=== PATIENT | male | born 1945 | race Caucasian/White ===

== ENCOUNTER 2016-07-17 12:56 | Outpatient (CLI) ==
[2015-01-05 10:21] VITALS: BMI 30.7
[2016-07-17 14:11] LABS: BILIRUBIN,URINE Negative (NEGATIVE); KETONES,URINE Negative (NEGATIVE); LEUKOCYTE ESTERASE ,URINE Negative (NEGATIVE); NITRITE,URINE Negative (NEGATIVE); PROTEIN,URINE Negative (NEGATIVE); URINE, BLOOD 1+ (NEGATIVE)
[2016-07-17 14:23] LABS: ADD URINE MICROSCOPIC YES
== END 2016-07-17 12:57 | disposition home or self-care (01) ==
LOC: LAB 12:56
PROVIDERS: ATTEND General Practice
DX: R31.9 Hematuria, unspecified (principal)
CPT/HCPCS: 81001

== ENCOUNTER 2016-07-24 09:10 | Outpatient (CLI) | payer OTHER ==
[2015-01-05 10:21] VITALS: BMI 30.7
--- NOTE | 2016-07-24 10:09 | US ---
EXAM: Renal ultrasound HISTORY: Hematuria COMPARISON: CTA abdomen pelvis 09/09/2014 TECHNIQUE: Sonographic evaluation of the kidneys was performed with limited Doppler evaluation. FINDINGS: The right kidney measures 11.3 x 5.4 x 4.3 cm with renal cortical thickness of 1.9 cm. T here is normal echogenicity and color Doppler flow. No stone or hydronephrosis is identified. Ther e is a hyperechoic probable stone in the right inferior pole measuring 0.6 cm. The left kidney measures 10.4 x 4.8 x 4.2 cm with renal cortical thickness of 1.8 cm. There is norm al echogenicity and color Doppler flow. No stone or hydronephrosis is identified. Numerous anechoic cysts are present with the largest measuring 1.0 x 1.3 x 1.7 cm. There is a hyperechoic stone in th e mid left kidney consistent with nonobstructing stone. Limited evaluation of the urinary bladder is unremarkable and is nondistended. IMPRESSION: 1. No obstructive uropathy with bilateral nonobstructing stones. 2. Anechoic left renal cysts are present.
== END 2016-07-24 09:11 | disposition home or self-care (01) ==
LOC: RAD 09:10
PROVIDERS: ATTEND General Practice
DX: R31.9 Hematuria, unspecified (principal)
CPT/HCPCS: 76770

== ENCOUNTER 2016-10-12 15:11 | Outpatient (CLI) | payer OTHER ==
[2015-01-05 10:21] VITALS: BMI 30.7
--- NOTE | 2016-10-12 15:35 | DI ---
EXAM: Four views of the right knee. History: Right knee pain and trauma. Findings: No acute fracture or dislocation. Moderate to severe narrowing of the medial compartment . Moderate narrowing of the patellofemoral compartment. Mild narrowing of the lateral compartment. Small osteophytes. Amorphous calcification seen on the lateral view projecting over the superior joint space. Impression: 1. No acute osseous abnormality. 2. Osteoarthritis. 3. 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
== END 2016-10-12 15:12 | disposition home or self-care (01) ==
LOC: RAD 15:11
PROVIDERS: ATTEND General Practice
DX: M25.561 Pain in right knee (principal)

== ENCOUNTER 2016-11-23 09:34 | Outpatient (CLI) ==
[2015-01-05 10:21] VITALS: BMI 30.7
[2016-11-23 14:15] LABS: BASOPHILS # (AUTO) 0.1 K/uL (0-0.2); BASOPHILS % (AUTO) 1.1 % (0.0-3.0); EOSINOPHILS # (AUTO) 0.2 K/ul (0.0-0.7); EOSINOPHILS % (AUTO) 4.3 % (0.0-7.0); HEMATOCRIT 45.3 % (42.0-52.0); HEMOGLOBIN 15.2 g/dl (14.0-18.0); IMMATURE GRANULOCYTE % (AUTO) 0.2 % (0.0-5.0); LYMPHOCYTES # (AUTO) 1.6 K/uL (0.60-3.4); LYMPHOCYTES % (AUTO) 29.7 (10.0-50.0); MEAN CORPUSCULAR HEMOGLOBIN 30.8 pg (27.0-31.0); MEAN CORPUSCULAR HGB CONC 33.6 (31.8-35.4); MEAN CORPUSCULAR VOLUME 91.7 fl (80.0-94.0); MONOCYTES # (AUTO) 0.4 K/uL (0.4-2.0); MONOCYTES % (AUTO) 7.9 (0-10); NEUTROPHILS % (AUTO) 56.8; PLATELET COUNT 148 10^3/uL (140-440); RED BLOOD COUNT 4.94 10^6/ul (4.70-6.10); WHITE BLOOD COUNT 5.32 K/ul (4.2-10.2)
[2016-11-23 14:30] LABS: ALBUMIN 3.8 g/dL (3.4-5.0); ALBUMIN/GLOBULIN RATIO 0.97; ANION GAP 15.6; BILIRUBIN,TOTAL 0.52 mg/dL (0.00-1.20); BUN/CREATININE RATIO 17.39; CALCIUM 9.3 mg/dL (8.2-10.2); CHOL/HDL RATIO 4.8 (4.5-6.4); CREATININE 1.38 mg/dL (0.60-1.10); POTASSIUM 4.6 mmol/L (3.5-5.1); TOTAL PROTEIN 7.7 g/dL (5.8-8.1)
[2016-11-23 14:31] LABS: BILIRUBIN,URINE Negative (NEGATIVE); KETONES,URINE Negative (NEGATIVE); LEUKOCYTE ESTERASE ,URINE Negative (NEGATIVE); NITRITE,URINE Negative (NEGATIVE); PROTEIN,URINE Negative (NEGATIVE); URINE, BLOOD 1+ (NEGATIVE)
[2016-11-23 14:36] LABS: ADD URINE MICROSCOPIC YES
== END 2016-11-23 09:35 ==
LOC: LAB 09:34
PROVIDERS: ATTEND General Practice
DX: I10 Essential (primary) hypertension (principal); Z79.899 Other long term (current) drug therapy
CPT/HCPCS: 36415; 80053; 80061; 81001; 85025

== ENCOUNTER 2017-01-29 12:04 | Emergency (ER) | payer OTHER ==
[2017-01-29 12:14] VITALS: BP 148/89; TEMP 97.5; BMI 31.1
--- NOTE | 2017-01-29 13:00 | DI ---
Exam: Two x-rays of the chest. Comparison: 09/09/2014. Reason for exam: Epigastric pain. FINDINGS: No pneumothorax, pleural effusion, or focal consolidation. The cardiac silhouette is not enlarged. The imaged osseous structures appear grossly unremarkable without acute fracture. Impression: No acute cardiopulmonary process.
--- NOTE | 2017-01-29 13:02 | CT ---
EXAM: CT of the abdomen pelvis without contrast History: Epigastric abdominal pain. Comparison: CT abdomen pelvis 09/09/2014 Technique: Multiplanar CT images through the abdomen pelvis were obtained without the administratio n of IV contrast Findings: Lung bases are free of consolidation. No acute osseous abnormalities. Severe degenerativ e disc disease at L5-S1. Cholelithiasis. No peripancreatic inflammation. Calcified granulomas within the liver and spleen. Adrenal glands are unremarkable. No renal stones and no hydronephrosis. No ureteral calculi. Ath erosclerotic vascular calcifications. No bowel obstruction. No free air. No ascites. The appendi x is normal. No bladder wall thickening. No perirectal inflammation. Prostatic calcifications. Impression: 1. Cholelithiasis. 2. Severe degenerate disc disease at L5-S1.
[2017-01-29 13:05] LABS: BASOPHILS # (AUTO) 0.1 K/uL (0-0.2); BASOPHILS % (AUTO) 0.7 % (0.0-3.0); EOSINOPHILS # (AUTO) 0.2 K/ul (0.0-0.7); EOSINOPHILS % (AUTO) 2.2 % (0.0-7.0); HEMATOCRIT 43.1 % (42.0-52.0); HEMOGLOBIN 15.2 g/dl (14.0-18.0); IMMATURE GRANULOCYTE % (AUTO) 0.1 % (0.0-5.0); LYMPHOCYTES # (AUTO) 1.8 K/uL (0.60-3.4); LYMPHOCYTES % (AUTO) 27.1 (10.0-50.0); MEAN CORPUSCULAR HEMOGLOBIN 31.5 pg (27.0-31.0); MEAN CORPUSCULAR HGB CONC 35.3 (31.8-35.4); MEAN CORPUSCULAR VOLUME 89.2 fl (80.0-94.0); MONOCYTES # (AUTO) 0.6 K/uL (0.4-2.0); MONOCYTES % (AUTO) 8.1 (0-10); NEUTROPHILS # (AUTO) 4.2 K/ul (2.0-6.9); NEUTROPHILS % (AUTO) 61.8; PLATELET COUNT 116 10^3/uL (140-440); RED BLOOD COUNT 4.83 10^6/ul (4.70-6.10); WHITE BLOOD COUNT 6.75 K/ul (4.2-10.2)
[2017-01-29 13:33] LABS: ALBUMIN 3.7 g/dL (3.4-5.0); ALBUMIN/GLOBULIN RATIO 0.97; ANION GAP 13.2; BILIRUBIN,TOTAL 0.63 mg/dL (0.00-1.20); BUN/CREATININE RATIO 11.65; CALCIUM 9.7 mg/dL (8.2-10.2); CREATININE 1.63 mg/dL (0.60-1.10); POTASSIUM 4.2 mmol/L (3.5-5.1); TOTAL PROTEIN 7.5 g/dL (5.8-8.1); TROPONIN I 0.01 ng/ml (0.0000-0.4000)
--- NOTE | 2017-01-29 13:44 | ED.PDOC ---
General ED Provider: Dr. KURT PERSAUD Chief Complaint: Chest Pain Stated Complaint: epigastric pain Time Seen by Physician: 12:20 ( has epigastric burning pain with regurgitation of food ) Mode of Arrival: Walk-In Information Source: Patient Exam Limitations: No limitations [facility] T[facility] Documentation Reviewed and Agree: Yes (did not have full regurgitation but burning extended to throat /mouth) GI Complaint Exam - Abdominal Pain Complaint/Exam Onset: Gradual Duration: epigastric pain x 1 day Symptoms Are: Resolved Timing: Intermittent Initial Severity: Moderate Current Severity: None Location of Pain: Epigastric Character: Reports: Burning Aggravating: Reports: Food Alleviating: Reports: None Associated Signs and Symptoms: Reports: Cough. Denies: Diaphoresis, Fever, Chest pain, Dizziness, Back pain, Constipation, Blood in stool, Dysuria, Urinary frequency, Decreased urine output, Decreased appetite, Discharge, Nausea , Vomiting, Diarrhea, Decreased activity Related History: Reports: Similar episode Review of Systems - Review Of Systems Constitutional: Reports: No symptoms Eyes: Reports: No symptoms Ears, Nose, Mouth, Throat: Reports: No symptoms Respiratory: Reports: No symptoms Cardiac: Reports: Chest pain GI: Reports: Abdominal pain : Reports: No symptoms Musculoskeletal: Reports: No symptoms Skin: Reports: No symptoms Neurological: Reports: No symptoms Endocrine: Reports: No symptoms Hematologic/Lymphatic: Reports: No symptoms All Other Systems: Reviewed and Negative Past Medical History - Past Medical History Previously Healthy: No Endocrine: Reports: None Cardiovascular: Reports: Hypertension Respiratory: Reports: None Hematological: Reports: None Gastrointestinal: Reports: None Genitourinary: Reports: None Neuro/Psych: Reports: None Musculoskeletal: Reports: None Cancer: Reports: None - Surgical History General Surgical History: Reports: None - Family History Family History: Reports: None - Social History Smoking Status: Never smoker Hx Substance Use: No Alcohol Screening: Occasionally Physical Exam - Physical Exam Appearance: Well-appearing, No pain distress, Well-nourished Eyes: RICHARD, EOMI, Conjunctiva clear ENT: Ears normal, Nose normal, Oropharynx normal Respiratory: Airway patent, Breath sounds clear, Breath sounds equal, Respirations nonlabored Cardiovascular: RRR, Pulses normal, No rub, No murmur GI/: Soft, Nontender, No masses, Bowel sounds normal, No Organomegaly Musculoskeletal: Normal strength, ROM intact, No edema, No calf tenderness Skin: Warm, Dry, Normal color Neurological: Sensation intact, Motor intact, Reflexes intact, Cranial nerves intact, Alert, Oriented Psychiatric: Affect appropriate, Mood appropriate Interpretation - Radiology Interpretation Radiology Interpretation By: Radiologist Radiology Results: Positive (gall stone) - Endorsement Clerk Rate: Vincent Rhythm: Sinus - EKG Interpretation Rate: Vincent Rhythm: Sinus Ectopy: None [place]: NL ST Segment: Normal EKG Comparison: No significant changes Critical Care Note - Critical Care Note Total Time (mins): 0 Course - Course Hematology/Chemistry: 01/29/17 12:59 01/29/17 12:59 Orders, Labs, Meds: Lab Review 01/29/17 12:59 WBC 6.75 RBC 4.83 Hgb 15.2 Hct 43.1 MCV 89.2 MCH 31.5 H MCHC 35.3 RDW Coeff of Debbie 11.9 Plt Count 116 L Immature Gran % (Auto) 0.1 Neut % (Auto) 61.8 Lymph % (Auto) 27.1 Bay % (Auto) 8.1 Eos % (Auto) 2.2 Baso % (Auto) 0.7 Immature Gran # (Auto) 0.0 Neut # 4.2 Lymph # 1.8 Bay # 0.6 Eos # 0.2 Baso # 0.1 Sodium 144 Potassium 4.2 Chloride 111 H Carbon Dioxide 24 Anion Gap 13.2 BUN 19 H Creatinine 1.63 H Estimated GFR (MDRD) 42.00 BUN/Creatinine Ratio 11.65 Glucose 120 H Calcium 9.7 Total Bilirubin 0.63 AST 16 ALT 21 Alkaline Phosphatase 53 L Total Creatine Kinase 84 Troponin I 0.0100 Total Protein 7.5 Albumin 3.7 Globulin 3.8 Albumin/Globulin Ratio 0.97 Amylase 52 Lipase 51 Orders Category Date Time Status EKG-(ED ONLY) Stat CARDIO 01/29/17 12:30 Completed AMYLASE Stat LAB 01/29/17 12:59 Completed CBC W/ AUTO DIFF Stat LAB 01/29/17 12:59 Completed COMPREHENSIVE METABOLIC PANEL Stat LAB 01/29/17 12:59 Completed CREATINE KINASE Stat LAB 01/29/17 12:59 Completed D-DIMER Stat LAB 01/29/17 12:59 Received LIPASE Stat LAB 01/29/17 12:59 Completed TROPONIN I Stat LAB 01/29/17 12:59 Completed CHEST, 2 VIEWS PA & LAT Stat RADS 01/29/17 12:[address] ABDOMEN/PELVIS WO CONTRAST Stat RADS 01/29/17 12:30 Completed Vital Signs: Temp Pulse Resp BP Pulse Ox 01/29/17 12:09 97.5 F L 67 16 148/89 H 96 Departure - Departure Time of Disposition: 13:45 Disposition: HOME SELF-CARE Discharge Problem: Epigastric abdominal pain, Chest pain, Gall stones Instructions: Acute Abdominal Pain (ED), Chest Pain (ED), Gallstones (ED) Condition: Good Pt referred to PMD for follow-up: Yes Additional Instructions: Please call your Family Physician as soon as possible to schedule a follow-up appointment. Allergies/Adverse Reactions: Allergies hydrocodone bitartrate [From Lortab] Allergy (Mild, Unverified 01/29/17 12:06) Nausea aspirin Adverse Reaction (Unverified 01/29/17 12:06) Home Medications: Ambulatory Orders Travoprost Opth [Travatan Z] 1 drop OP BEDTIME 09/09/14 Timolol [Betimol] 5 ml OP BID 01/04/15 Brinzolamide [Azopt] 5 ml OP TID nav 07/29/15 Hydrochlorothiazide 12.5 mg PO DAILY 01/29/17 Olmesartan Medoxomil [Benicar] 40 mg PO DAILY 01/29/17 Disposition Discussed With: Patient
== END 2017-01-29 13:53 | disposition home or self-care (01) ==
LOC: ED 12:04
DX: R10.13 Epigastric pain (principal); R07.9 Chest pain, unspecified; K80.80 Other cholelithiasis without obstruction; I10 Essential (primary) hypertension; Z79.899 Other long term (current) drug therapy
CPT/HCPCS: 36415; 80053; 82150; 82550; 83690; 84484; 85025; 85379; 93005; 93010; 99283

== ENCOUNTER 2017-02-06 06:45 | Outpatient (CLI) ==
--- NOTE | 2017-02-06 08:40 | US ---
EXAM: Ultrasound abdomen limited. HISTORY: Nausea. Cholelithiasis. COMPARISON: CT 01/29/2017. TECHNIQUE: Abdominal, real time with image documentation: limited (eg, single organ, quadrant, fol low-up) FINDINGS: The liver is poorly seen due to imaging through the ribs. Portal venous flow is normal i n direction. The gallbladder contains echogenic shadowing structures. There is no gallbladder wall thickening or pericholecystic fluid. Common duct measures approximately 0.6 cm. Visualized portio ns of the pancreas are unremarkable. IMPRESSION: 1. Cholelithiasis without sonographic evidence for cholecystitis. 2. Poor visualization of the liver due to technical factors.
--- NOTE | 2017-02-06 10:36 | STRESSECHO ---
Date of Test: 02/06/17 Reason for Exam: CHEST PRESSURE, NAUSEA Ordering Physician: LD ALONSO Current Medications: BENICAR, EYE DROPS Resting EKG: SINUS RHYTHM/ NO ACUTE CHANGES Target Heart Rate: 125/148 STAGE MPH/GRADE HEART RATE BPM BLOOD PRESSURE mmhg RHYTHM S-T SEGMENT +/- UP DOWN SYMPTOMS,COMMENTS At Rest 60 122/80 SR X NONE 1 1.7/10% 110 120/82 SR X NONE 2 2.5/12% 3 3.4/14% 4 4.2/16% 5 5.0/18% Immediately after 131 SR X FATIGUE Durations of Exercise: 5:01 Maximum Heart Rate Reached: 131 Reason for Termination: FATIGUE 3 MINUTES POST EXERCISE: HR 90 BPM, BP 132/80 MMHG INTERPRETATION: 97% OXYGEN SATURATION WITH EXERCISE ON ROOM AIR METS 7.0 1. NO EVIDENCE OF ISCHEMIA BY ST-T WAVE 2. NO CHEST PAIN OR CHEST DISCOMFORT 3. BLOOD PRESSURE RESPONSE NORMAL 4. NO ARRHYTHMIAS NORMAL LEFT VENTRICULAR CONTRACTILITY--RESTING AND POST EXERCISE MTDD
--- NOTE | 2017-02-06 10:42 | ECHOSTRESS ---
Date of Exam: 02/06/17 Ordering Physician: [facility] Reason for Echo: CHEST PRESSURE, NAUSEA, STRESS TEST--NO ISCHEMIA M-Mode Normal Adult Results LV Dimensions Normal Adult Results AoV Opening excursions >1.6 LVEDD-base- 3.5-5.8 Ao root dimensions 2.0-3.7 LVESD-base- 3.1-4.6 L. Atrium dimensions 1.9-3.8 Post. Wall thickness 0.8-1.1 IV septum (thickness) 0.7-1.2 Post. Wall excursion 0.72-1.3 Septal motion Systolic motion R. Ventricular cavity 1.5-2.0 LVEF 60% Paradoxical septal wall motion 2-D: NORMAL LEFT VENTRICULAR CONTRACTILITY--RESTING AND POST EXERCISE M-MODE: MV: AV: TV: PV: CHAMBER SIZE: WALL MOTION: NORMAL LEFT VENTRICULAR CONTRACTILITY--RESTING AND POST EXERCISE PERICARDIUM: INTERPRETATION: 1. NORMAL LEFT VENTRICULAR CONTRACTILITY--RESTING AND POST EXERCISE MTDD
== END 2017-02-06 06:46 | disposition home or self-care (01) ==
LOC: CAR 06:45
PROVIDERS: ATTEND General Practice
DX: R07.89 Other chest pain (principal); R11.0 Nausea

== ENCOUNTER 2017-03-27 12:54 | Outpatient (CLI) ==
[2017-03-27 13:22] LABS: BASOPHILS # (AUTO) 0.1 K/uL (0-0.2); BASOPHILS % (AUTO) 0.8 % (0.0-3.0); EOSINOPHILS # (AUTO) 0.3 K/ul (0.0-0.7); EOSINOPHILS % (AUTO) 4.3 % (0.0-7.0); HEMATOCRIT 44.3 % (42.0-52.0); HEMOGLOBIN 15.3 g/dl (14.0-18.0); IMMATURE GRANULOCYTE % (AUTO) 0.2 % (0.0-5.0); LYMPHOCYTES # (AUTO) 1.8 K/uL (0.60-3.4); LYMPHOCYTES % (AUTO) 28.4 (10.0-50.0); MEAN CORPUSCULAR HEMOGLOBIN 30.8 pg (27.0-31.0); MEAN CORPUSCULAR HGB CONC 34.5 (31.8-35.4); MEAN CORPUSCULAR VOLUME 89.1 fl (80.0-94.0); MONOCYTES # (AUTO) 0.6 K/uL (0.4-2.0); MONOCYTES % (AUTO) 9.2 (0-10); NEUTROPHILS # (AUTO) 3.6 K/ul (2.0-6.9); NEUTROPHILS % (AUTO) 57.1; PLATELET COUNT 139 10^3/uL (140-440); RED BLOOD COUNT 4.97 10^6/ul (4.70-6.10); WHITE BLOOD COUNT 6.31 K/ul (4.2-10.2)
[2017-03-27 13:25] LABS: BILIRUBIN,URINE Negative (NEGATIVE); KETONES,URINE Negative (NEGATIVE); LEUKOCYTE ESTERASE ,URINE Trace (NEGATIVE); NITRITE,URINE Negative (NEGATIVE); PH,URINE 5.5 (5-9); PROTEIN,URINE Negative (NEGATIVE); URINE, BLOOD Trace-lysed (NEGATIVE)
[2017-03-27 13:28] LABS: ADD URINE MICROSCOPIC YES
[2017-03-27 13:33] LABS: ALBUMIN 3.9 g/dL (3.4-5.0); ALBUMIN/GLOBULIN RATIO 0.95; ANION GAP 12.8; BILIRUBIN,TOTAL 0.75 mg/dL (0.00-1.20); BUN/CREATININE RATIO 17.98; CALCIUM 9.9 mg/dL (8.2-10.2); CHOL/HDL RATIO 5.1 (4.5-6.4); CREATININE 1.39 mg/dL (0.60-1.10); POTASSIUM 3.8 mmol/L (3.5-5.1)
== END 2017-03-27 12:55 | disposition home or self-care (01) ==
LOC: LAB 12:54
PROVIDERS: ATTEND General Practice
DX: I10 Essential (primary) hypertension (principal); Z79.899 Other long term (current) drug therapy
CPT/HCPCS: 36415; 80053; 80061; 81001; 85025

== ENCOUNTER 2017-08-01 09:53 | Outpatient (CLI) | END 2017-08-01 09:54 | disposition home or self-care (01) | LOC: LAB 09:53 | PROVIDERS: ATTEND General Practice | DX: I10 Essential (primary) hypertension (principal); K21.0 Gastro-esophageal reflux disease with esophagitis; Z79.899 Other long term (current) drug therapy | CPT/HCPCS: 36415; 80053; 80061; 81001; 85025 ==

== ENCOUNTER 2017-11-28 13:44 | Outpatient (CLI) | END 2017-11-28 13:45 | disposition home or self-care (01) | LOC: FCC-LAB 13:44 | PROVIDERS: ATTEND General Practice | DX: R31.9 Hematuria, unspecified (principal); I10 Essential (primary) hypertension; N18.3 Chronic kidney disease, stage 3 (moderate); Z12.5 Encounter for screening for malignant neoplasm of prostate; Z79.899 Other long term (current) drug therapy | CPT/HCPCS: 36415; 80053; 80061; 81001; 85025; 87086 ==

== ENCOUNTER 2018-04-14 13:19 | Outpatient (CLI) | END 2018-04-14 13:20 | disposition home or self-care (01) | LOC: RHC-LAB 13:19 | PROVIDERS: ATTEND General Practice | DX: R31.9 Hematuria, unspecified (principal); I10 Essential (primary) hypertension; N18.3 Chronic kidney disease, stage 3 (moderate) | CPT/HCPCS: 36415; 80053; 80061; 81001; 85025 ==

== ENCOUNTER 2018-08-13 08:41 | Outpatient (CLI) | END 2018-08-13 08:42 | disposition home or self-care (01) | LOC: RHC-LAB 08:41 | PROVIDERS: ATTEND General Practice | DX: K21.0 Gastro-esophageal reflux disease with esophagitis (principal); N18.3 Chronic kidney disease, stage 3 (moderate); Z79.899 Other long term (current) drug therapy | CPT/HCPCS: 36415; 80053; 80061; 81001; 83036; 85025 ==

== ENCOUNTER 2018-12-17 09:00 | Outpatient (CLI) | END 2018-12-17 09:01 | disposition home or self-care (01) | LOC: RHC-LAB 09:00 | PROVIDERS: ATTEND General Practice | DX: K21.0 Gastro-esophageal reflux disease with esophagitis (principal); I10 Essential (primary) hypertension; N18.3 Chronic kidney disease, stage 3 (moderate); Z79.899 Other long term (current) drug therapy | CPT/HCPCS: 36415; 80053; 80061; 81001; 85025; 87086 ==

== ENCOUNTER 2018-12-22 13:45 | Outpatient (CLI) | END 2018-12-22 13:46 | disposition home or self-care (01) | LOC: RHC-LAB 13:45 | PROVIDERS: ATTEND General Practice | DX: M25.50 Pain in unspecified joint (principal); M10.9 Gout, unspecified; Z79.899 Other long term (current) drug therapy | CPT/HCPCS: 36415; 84550 ==